=== PATIENT | female | born 1960 | race Caucasian/White ===

== ENCOUNTER → 2019-01-22 14:52 | Outpatient (CLI) | payer OTHER, SELFPAY ==
--- NOTE | 2019-01-22 15:00 | XR_ITS ---
XR chest 2V HISTORY: Cough, COPD, smoker ITS.REASON: COPD ORDERING PHYSICIAN: Cyndee Mcdaniel APRN PATIENT AGE: 58 years COMPARISON: None FINDINGS: The cardiomediastinal silhouette and pulmonary vascularity are within normal limits. There is an ill-defined area of increased density in the right mid to upper lung zone laterally along superior aspect of the major fissure. This may be due to an area of pneumonia. Follow-up is suggested as an ill-defined nodule could have a similar appearance. There may also be some pneumonia in the right infrahilar region. There is evidence of old granulomatous disease. No acute bony findings. No effusions. IMPRESSION: Opacity in the right upper lobe laterally which may be due to an area of pneumonia or developing nodule. Patchy infiltrate is present in the right infrahilar region. Suggest follow up exam following adequate treatment for pneumonia.
== END ==
PROVIDERS: PCP Nurse Practitioner; Visit Provider Nurse Practitioner
DX: J44.1 Chronic obstructive pulmonary disease with (acute) exacerbation (principal)
CPT/HCPCS: 71046